=== PATIENT | male | born 1995 | race Caucasian/White ===

== ENCOUNTER 2017-02-14 17:17 | Emergency (ER) | payer BC ==
[2017-02-14 17:22] VITALS: BP 133/83
--- NOTE | 2017-02-14 17:31 | ER Document Report ---
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 His right fifth finger nail is pulled up and he hurts the most at the fourth PIP joint. Tetanus is not current Associated Symptoms: None Exacerbated by: Movement Relieved by: Denies - ROS ROS below otherwise negative: Yes Systems Reviewed and Negative: Yes All other systems reviewed and negative - DERM Skin Color: Normal Past Medical History - General Information source: Patient - Social History Smoking Status: Never Smoker Frequency of alcohol use: None Drug Abuse: None Lives with: Parents Family History: Reviewed & Not Pertinent Patient has suicidal ideation: No Patient has homicidal ideation: No - Medical History Medical History: Negative Renal/ Medical History: Denies: Hx Peritoneal Dialysis Surgical Hx: Negative Vertical Provider Document - CONSTITUTIONAL Agree With Documented VS: Yes Exam Limitations: No Limitations General Appearance: No Apparent Distress - INFECTION CONTROL TRAVEL OUTSIDE OF THE [place] IN LAST 30 DAYS: No - HEENT HEENT: Normocephalic - NECK Neck: Supple - RESPIRATORY O2 Sat by Pulse Oximetry: 99 - MUSCULOSKELETAL/EXTREMETIES Musculoskeletal/Extremeties: MAEW, FROM, Tender - right 4th finger PIP and right 5th finger tip where nail is mostly avulsed - NEURO Level of Consciousness: Awake, Alert Motor/Sensory: No Motor Deficit, No Sensory Deficit Course - Re-evaluation Re-evalutation: 02/14/17 18:55 X-ray is negative except for a lucency in the right index finger which is completely nontender it is not clinically broken he did not injure it today. 02/14/17 18:56 Procedure note: Right fifth finger 1% lidocaine digital block. Fifth finger nail avulsed except for the very tip edge. Loosened the tip edge and nail removed with no laceration to the nailbed. Full range of motion and tendon function normal fourth and fifth finger. Fifth finger bandaged with bacitracin and Vaseline gauze. 02/14/17 18:57 Patient chewed # 3 75mg Nucynta (fast release) that the woman hand for pain at 5 pm. He has no dizziness, somnolence, chest pain or shortness of breath. [facility] called. OK to go home to stay with mom. 02/14/17 19:02 - Vital Signs Vital signs: Temp Pulse Resp BP Pulse Ox 99.0 F 80 20 133/83 H 99 02/14/17 17:21 02/14/17 17:21 02/14/17 17:21 02/14/17 17:21 02/14/17 17:21 Discharge - Discharge Clinical Impression: 5th right fingernail avulsion, right 4th finger sprain Condition: Good Disposition: HOME, SELF-CARE Instructions: Acetaminophen, Avulsion Injury ([facility]), Use of Opsi-Njo-Btfzbju Ibuprofen ([facility]), Sprained Finger ([facility]) Additional Instructions: nail will take 3 months to grow out keep this dressing on for 24 hours soak in warm soapy water or epsom salt daily bacitracin, vaseline gauze keep covered to er any concerns Please complete the patient satisfaction survey if you get one, and return it.. If you do not receive a survey, then you can go to the [facility] website, [email or web address] and place your comments about your very good care. Thank you very much. It was a pleasure being your medical provider today. Forms: Release from [facility]
[2017-02-14] MEDS ORDERED: DIPH/PERTUSS(ACELL)/TETANUS VAC/PF 0.5 ML SYR (>=10YO) IM ONE (17:32)
[2017-02-14] MEDS ORDERED: LIDOCAINE 1% INJ-PF (10 MG/ML) 30 ML SDV INJ ONE (17:36)
--- NOTE | 2017-02-14 17:55 | RADIOLOGY REPORT (SQ) ---
EXAM DESCRIPTION: HAND RIGHT 3 VIEWS COMPLETED DATE/TIME: 02/14/2017 5:43 pm REASON FOR STUDY: smashed COMPARISON: None. EXAM PARAMETERS: NUMBER OF VIEWS: Four views. TECHNIQUE: AP, lateral and oblique radiographic images acquired of the right hand. LIMITATIONS: Suboptimal patient positioning. FINDINGS: MINERALIZATION: Normal. BONES: On the AP view only, there is a subtle lucency traversing the 2nd digit proximal phalanx diaph ysis. JOINTS: No effusions. SOFT TISSUES: No soft tissue swelling. No foreign body. OTHER: No other significant finding. IMPRESSION: Single-view demonstrating a linear lucency traversing the 2nd digit proximal phalanx bianca physis. Despite the lack of overlying swelling, this is favored to represent a nondisplaced fracture . Recommend correlation with mechanism of injury and point tenderness TECHNICAL DOCUMENTATION: JOB ID: [id number] [employer]- All Rights Reserved
== END 2017-02-14 19:02 | disposition home or self-care (01) ==
LOC: ER 17:17
PROC: 0HBQXZZ Excision of Finger Nail, External Approach (ICD-10-PCS; principal; 2017-02-14)
DX: S63.614A Unspecified sprain of right ring finger, initial encounter (principal); S61.306A Unspecified open wound of right little finger with damage to nail, initial encounter; W23.0XXA Caught, crushed, jammed, or pinched between moving objects, initial encounter; Z23 Encounter for immunization
CPT/HCPCS: 99283; 90471; 73130; 90715; 11750; J3490